=== PATIENT | male | born 1970 | race Caucasian/White ===

== ENCOUNTER 2021-03-10 07:48 | Emergency (ER) | payer BC, SELFPAY ==
[2021-03-10 07:49] VITALS: BP 149/101; PULSE 85; RESP 16; TEMP 36.2; O2SAT 98; BMI 35.7
--- NOTE | 2021-03-10 08:35 | RAD_ITS ---
STUDY: X-RAY - RIGHT KNEE REASON FOR EXAM: Male, 50 years old. PAIN TECHNIQUE: 4 view(s) of the knee. COMPARISON: None. FINDINGS: No acute fracture, dislocation or osseous destruction. Mild lateral compartment arthrosis. Normal medial compartment. Mild patellofemoral arthrosis. Small volume joint effusion. Mild anterior swelling. RAD/Knee 4 or More Views IMPRESSION: Right knee intact Mild osteoarthritis Small joint effusion with anterior swelling Electronically Signed: Robin Gomes DO at 8:56 EDT Tel , Service support ,
--- NOTE | 2021-03-10 09:16 | EDS_ITS ---
HPI History of Present Illness Chief Complaint: Lower Extremity Injury Informant: patient and spouse/S.O. Narrative Narrative: Rest Is worse with increased activity, lateral use, walking. right knee pain. This is been going on for a week or so. There is nothing specifically that initiated it. He has had problems on the left leg before that sound like a plantaris tendon rupture. However this is his right knee. Most of the pain is in the anterior portion of the knee.Patient presents with ice and topical creams make it better. He was seen recently and had an x-ray. He was given a 90-day supply of anti-inflammatories.. It was recommended he get an MRI and physical therapy He has not yet seen orthopedics. [facility] Medical History (Updated 03/10/21 @ 09:[address] Daniel Haskins MD) Knee pain no medical history Home Medications tramadol 50 mg PO Q8H PRN 3 Days #10 tab 03/10/21 [Rx Last Taken Unknown] Allergy/AdvReac Type Severity Reaction Status Date / Time No Known Allergies Allergy Verified 03/10/21 07:49 Social History Smoking Status: Never smoker ROS ROS ED Constitutional Constitutional ED: Denies chills or fever(s) Respiratory/Chest Respiratory/Chest: Denies cough, dyspnea or dyspnea on exertion Gastrointestinal Gastrointestinal: Denies nausea or vomiting Musculoskeletal Musculoskeletal: Reports arthralgias; Denies back pain Integumentary Denies abscess or rash Neurologic Neurologic: Denies headache(s), paresthesias or weakness Hematologic/Lymphatic Hematologic/Lymphatic: Denies lymphadenopathy EXAM Physical Exam Const Vital Signs: 03/10/21 07:49 Temperature 97.2 F L Temperature Source Temporal Pulse Rate 85 Respiratory Rate 16 Blood Pressure 149/101 H Blood Pressure Mean 117 Pulse Ox 98 Oxygen Delivery Method Room Air Positive well nourished and well developed; Negative for unkempt General Appearance ED: well developed; Negative for unkempt HEENT normocephalic and atraumatic Chest Wall inspection of chest normal Resp normal respiratory effort Back/Spine no CVA tenderness Lumbar Spine / Lower Back: straight leg raise negative bilaterally Extremity normal to inspection Extremity Narrative: Examination of the right knee shows no erythema warmth or rash. It is possible there is a trace effusion but is not significant. No sign of prior [place]-Sch[place]'s disease. There is a slight amount of medial and lateral joint line tenderness but not marked. He appears to have stable cruciate ligaments as well as medial and collateral ligaments. No specific areas of tenderness with compression. Range of motion is relatively well- preserved. He goes from full extension to greater than 90 degrees. General Extremety ED: Negative for edema General Extremity: Negative for edema Psych Appearance: Negative for unkempt MDM MDM MDM Narrative Medical decision making narrative: Patient had x-rays today that show osteoarthritis and osteophyte formation. No sign of acute fracture. No sign of joint mouse. He is already on a nonsteroidal. It sounds like he is on low back and has a 3-month supply. I recommend he take this regularly and not just when it is bothering him. I did do an online prescribing report. I will give him a few tramadol to take at night so we can get better sleep. He will follow up with orthopedics. I explained that this could be a meniscal injury. Most of those will still heal with conservative treatment. This may also be a flare of arthritis. He should return with increasing pain, fevers, swelling, redness or other concerns. Radiography Diagnostic Testing: Radiology Impression Knee X-Ray 03/10/21 08:35 IMPRESSION: Right knee intact Mild osteoarthritis Small joint effusion with anterior swelling Electronically Signed: Robin Gomes DO at 8:56 EDT Tel , Service support , Discharge Plan Triage Chief Complaint: Lower Extremity Injury ED Provider: Daniel Haskins Dx/Rx/DC Orders Clinical Impression: Osteoarthritis of right knee Instructions: Arthritis: Exercise, ED Knee Sprain Prescriptions: New tramadol 50 mg tablet 50 mg PO Q8H PRN (Reason: pain) 3 Days Qty: 10 RF: 0 Primary Care Provider: Tanner Gao,Out of Referrals: Madi Reveles MD [STAFF PHYSICIAN] - As soon as possible Tanner Gao,Out of [Primary Care Provider] - Disposition Disposition: Home, Self Care
[2021-03-10 09:41] VITALS: BP 120/74; PULSE 67; RESP 15; O2SAT 97
== END 2021-03-10 09:42 | disposition home or self-care (01) ==
LOC: ED 09:35
PROVIDERS: Emergency Provider Emergency Medicine; PCP Family Medicine
DX: M17.11 Unilateral primary osteoarthritis, right knee (principal)
CPT/HCPCS: 73564; 99282